=== PATIENT | male | born 1995 | race Caucasian/White ===

== ENCOUNTER 2021-02-06 21:15 | Inpatient (IN) | payer MEDICAID ==
[~2021-02-06] VITALS: Ht 180.3 cm; Wt 72.3 kg
[2021-02-06 21:56] LABS: BASOPHILS % (AUTO) 0.7 % (0.0-2.0); EOSINOPHILS % (AUTO) 1.2 % (1.0-6.0); HEMATOCRIT 40.4 % (41-53); HEMOGLOBIN 13.8 g/dL (13.5-17.5); LYMPHOCYTES # (AUTO) 1.9 K/uL (1.0-4.8); LYMPHOCYTES % (AUTO) 26.5 % (22.0-44.0); MEAN CORPUSCULAR HEMOGLOBIN 29.6 pg (26.0-34.0); MEAN CORPUSCULAR HGB CONC 34.1 G/dL (31.0-37.0); MEAN CORPUSCULAR VOLUME 87 fL (80-100); MONOCYTES # (AUTO) 0.7 K/uL (0.1-1.0); MONOCYTES % (AUTO) 10.4 % (2.0-9.0); NEUTROPHILS # (AUTO) 4.4 K/uL (1.8-7.7); NEUTROPHILS % (AUTO) 61.2 % (40.0-70.0); PLATELET COUNT (AUTO) 305 K/uL (150-450); RED BLOOD CELL COUNT(AUTO) 4.67 MIL/uL (4.50-5.90); RED CELL DISTRIBUTION WIDTH 13.4 % (11.5-14.5)
[2021-02-06 22:04] LABS: ANION GAP 8 mmol/L (8-16); CALCIUM, TOTAL 8.5 mg/dL (8.8-10.5); CARBON DIOXIDE 27 mmol/L (22-29); CHLORIDE 105 mmol/L (98-107); CREATININE 1.03 mg/dL (0.60-1.30); GLOMERULAR FILTR. RATE CALC > 60 mL/min (>60); GLUCOSE,RANDOM 92 mg/dL (70-110); POTASSIUM 3.7 mmol/L (3.5-5.1); SODIUM SERUM 140 mmol/L (136-145); UREA NITROGEN, BLOOD 19 mg/dL (7-18)
[2021-02-06 22:08] LABS: ALANINE AMINOTRANSFERASE 24 U/L (12-78); ALBUMIN 3.6 g/dL (3.4-5.0); ALKALINE PHOSPHATASE 63 U/L (46-116); ASPARTATE AMINOTRANSFERASE 16 U/L (15-37); BILIRUBIN,TOTAL 0.3 mg/dL (0.1-1.0); TOTAL PROTEIN, SERUM 6.7 g/dL (6.4-8.2)
[2021-02-07] MEDS ORDERED: QUEtiapine FUMARATE 100 MG TABLET PO PRN
[2021-02-07] MEDS ORDERED: LORazepam 2 MG TABLET PO PRN
[2021-02-07 02:14] LABS: CHOL/HDL RATIO 2.4 (4.2-7.3); CHOLESTEROL 126 mg/dL (131-200); HDL CHOLESTEROL 52 mg/dL (40-60); LDL CHOL (CALC.) 68 mg/dL (0-130); TRIGLYCERIDES 31 mg/dL (15-150)
[2021-02-07] MEDS ORDERED: LORazepam 2 MG/ML VIAL ONE (06:22)
[2021-02-07] MEDS ORDERED: DiphenhydrAMINE HCL 50 MG/ML VIAL ONE (06:23)
[2021-02-07] MEDS ORDERED: HALOPERIDOL LACTATE 5 MG/ML VIAL ONE (06:23)
[2021-02-07] MEDS ORDERED: NICOTINE 14 MG/24 HOUR PATCH TD PRN (06:30)
[2021-02-07] MEDS ORDERED: DOCUSATE SODIUM 100 MG CAPSULE PO PRN (06:30)
[2021-02-07] MEDS ORDERED: IBUPROFEN 400 MG TABLET PO PRN (06:30)
[2021-02-07] MEDS ORDERED: DiphenhydrAMINE HCL 50 MG/ML VIAL IM ONE (06:30)
[2021-02-07] MEDS ORDERED: ONDANSETRON HCL 4 MG TABLET PO PRN (06:30)
[2021-02-07] MEDS ORDERED: ALBUTEROL SULFATE HFA 90 MCG/PUFF 8 GM INHALER IH PRN (06:30)
[2021-02-07] MEDS ORDERED: LOPERAMIDE HCL 2 MG CAPSULE PO PRN (06:30)
[2021-02-07] MEDS ORDERED: MAGNESIUM HYDROXIDE SUSPENSION 30 ML UDCUP PO PRN (06:30)
[2021-02-07] MEDS ORDERED: ACETAMINOPHEN 325 MG TABLET PO PRN (06:30)
[2021-02-07] MEDS ORDERED: PETROLATUM,WHITE 28 GM JELLY TP PRN (06:30)
[2021-02-07] MEDS ORDERED: GuaiFENesin/D-METHORPHAN [SUGAR-FREE] 200-20MG/10 ML SYRUP UDCUP PO PRN (06:30)
[2021-02-07] MEDS ORDERED: CloNIDine HCL 0.1 MG TABLET PO PRN (06:30)
[2021-02-07] MEDS ORDERED: MAG HYDROX/AL HYDROX/SIMETH ES 30 ML SUSPENSION UDCUP PO PRN (06:30)
[2021-02-07] MEDS ORDERED: LORazepam 2 MG/ML VIAL IM ONE (06:30)
[2021-02-07] MEDS ORDERED: HALOPERIDOL LACTATE 5 MG/ML VIAL IM ONE (06:30)
[2021-02-07 07:02] LABS: APPEARANCE,URINE CLEAR (CLEAR); BILIRUBIN,URINE NEGATIVE (NEGATIVE); GLUCOSE, URINE (UA) NEGATIVE (NEGATIVE); KETONES,URINE TRACE mg/dL (NEGATIVE); LEUKOCYTE ESTERASE ,URINE NEGATIVE (NEGATIVE); NITRATE,URINE NEGATIVE (NEGATIVE); OCCULT BLOOD,URINE NEGATIVE (NEGATIVE); PROTEIN,URINE NEGATIVE (NEGATIVE)
[2021-02-07 07:09] LABS: AMPHET/METH SCREEN,URINE NEGATIVE (NEGATIVE); BARBITURATE SCREEN, URINE NEGATIVE (NEGATIVE); BENZODIAZEPINES SCREEN,URINE POSITIVE (NEGATIVE); CANNABINOID SCREEN,URINE NEGATIVE (NEGATIVE); COCAINE SCREEN,URINE NEGATIVE (NEGATIVE); METHADONE SCREEN, URINE NEGATIVE (NEGATIVE); OPIATE SCREEN,URINE NEGATIVE (NEGATIVE)
[2021-02-07 07:12] LABS: PHENCYCLIDINE SCREEN,URINE NEGATIVE (NEGATIVE)
[2021-02-07 08:38] LABS: COVID AG,FIA SOURCE NASOPHARYNGEAL
[2021-02-07 14:58] VITALS: BP 119/75
[2021-02-07 16:00] VITALS: BP 126/7
[2021-02-08 08:00] VITALS: BP 127/74
[2021-02-08] MEDS: RisperiDONE 1 MG TABLET PO SCH (16:34)
[2021-02-08 17:08] VITALS: BP 111/73
[2021-02-09 08:00] VITALS: BP 124/82
[2021-02-09] MEDS: RisperiDONE 1 MG TABLET PO SCH ×2 (09:00→16:30)
[2021-02-09 16:42] VITALS: BP 134/86
[2021-02-09] MEDS: ZOLPIDEM TARTRATE 10 MG TABLET PO PRN (20:38)
[2021-02-10 08:00] VITALS: BP 117/58
[2021-02-10] MEDS: RisperiDONE 1 MG TABLET PO SCH ×2 (08:12→17:00)
[2021-02-10 16:42] VITALS: BP 123/62
[2021-02-10] MEDS: ZOLPIDEM TARTRATE 10 MG TABLET PO PRN (21:10)
[2021-02-11] MEDS: RisperiDONE 1 MG TABLET PO SCH ×2 (07:53→16:18)
[2021-02-11 08:05] VITALS: BP 150/80
[2021-02-11 16:11] VITALS: BP 107/65
[2021-02-11] MEDS: ZOLPIDEM TARTRATE 10 MG TABLET PO PRN (20:45)
[2021-02-12 08:29] VITALS: BP 103/61
[2021-02-12] MEDS: RisperiDONE 1 MG TABLET PO SCH ×2 (10:48→16:03)
[2021-02-12 16:09] VITALS: BP 113/60
[2021-02-12] MEDS: ZOLPIDEM TARTRATE 10 MG TABLET PO PRN (20:34)
[2021-02-13 08:58] VITALS: BP 125/73
[2021-02-13] MEDS: RisperiDONE 1 MG TABLET PO SCH ×2 (09:37→16:27)
[2021-02-13 16:29] VITALS: BP 123/65
[2021-02-13] MEDS: ZOLPIDEM TARTRATE 10 MG TABLET PO PRN (20:12)
[2021-02-14 07:00] LABS: COVID AG,FIA SOURCE NASAL SWAB
[2021-02-14] MEDS: RisperiDONE 1 MG TABLET PO SCH (08:14)
[2021-02-14 08:35] VITALS: BP 131/72
[2021-02-14 16:03] VITALS: BP 123/72
[2021-02-14] MEDS: RisperiDONE 2 MG TABLET PO SCH (21:04)
[2021-02-14] MEDS: ZOLPIDEM TARTRATE 10 MG TABLET PO PRN (21:10)
[2021-02-15 08:04] VITALS: BP 125/78
[2021-02-15] MEDS: RisperiDONE 2 MG TABLET PO SCH ×2 (08:52→20:47)
[2021-02-15 17:11] VITALS: BP 111/58
[2021-02-15] MEDS: ZOLPIDEM TARTRATE 10 MG TABLET PO PRN (21:03)
[2021-02-16 08:46] VITALS: BP 133/73
[2021-02-16] MEDS: RisperiDONE 2 MG TABLET PO SCH ×2 (08:46→20:47)
[2021-02-16 16:53] VITALS: BP 119/60
[2021-02-16] MEDS: ZOLPIDEM TARTRATE 10 MG TABLET PO PRN (21:00)
[2021-02-17 08:55] VITALS: BP 146/71
[2021-02-17] MEDS: RisperiDONE 2 MG TABLET PO SCH ×2 (10:21→20:35)
[2021-02-17 16:12] VITALS: BP 96/60
[2021-02-17] MEDS: ZOLPIDEM TARTRATE 10 MG TABLET PO PRN (20:35)
[2021-02-18] MEDS: RisperiDONE 2 MG TABLET PO SCH ×2 (07:44→20:03)
[2021-02-18 09:29] VITALS: BP 119/61
[2021-02-18 16:27] VITALS: BP 129/71
[2021-02-18] MEDS: ZOLPIDEM TARTRATE 10 MG TABLET PO PRN (20:03)
[2021-02-19 08:00] VITALS: BP 116/76
[2021-02-19] MEDS: RisperiDONE 2 MG TABLET PO SCH ×2 (08:14→20:10)
[2021-02-19 16:30] VITALS: BP 101/74
[2021-02-19] MEDS: ZOLPIDEM TARTRATE 10 MG TABLET PO PRN (20:24)
[2021-02-20 08:06] VITALS: BP 120/77
[2021-02-20] MEDS: RisperiDONE 2 MG TABLET PO SCH ×2 (08:22→20:05)
[2021-02-20 16:05] VITALS: BP 113/88
[2021-02-20] MEDS: ZOLPIDEM TARTRATE 10 MG TABLET PO PRN (20:30)
[2021-02-21 08:00] VITALS: BP 110/60
[2021-02-21] MEDS: RisperiDONE 2 MG TABLET PO SCH (08:10)
[2021-02-21] MEDS ORDERED: RISP2TAB45 PO (11:07)
== END 2021-02-21 13:40 | disposition home or self-care (01) | DRG 750 ==
LOC: EMS 21:20 → 3EC 02-07 14:29
PROVIDERS: ADMIT Psychiatry & Neurology Psychiatry; ATTEND Psychiatry & Neurology Psychiatry
DX: F20.0 Paranoid schizophrenia (principal); G93.40 Encephalopathy, unspecified; F10.10 Alcohol abuse, uncomplicated; F19.10 Other psychoactive substance abuse, uncomplicated; Z20.822 Contact with and (suspected) exposure to COVID-19; K59.00 Constipation, unspecified; Z79.899 Other long term (current) drug therapy
CPT/HCPCS: 80053; 80061; 81003; 85025; 99285; G0480; J1200; J1630; J2060